=== PATIENT | female | born 1985 | race African-American/Black ===

== ENCOUNTER 2016-08-29 14:51 | Emergency (ER) | payer BC ==
--- NOTE | ~2016-08-29 | CT2 ---
[facility] A Service of [facility] RADIOLOGY TEXT RESULTS PATIENT: HERMAN WELLS LOCATION: [place] : [birth year] UNIT #: [id number] AGE: [address]: Amber Pena MD SEX: F ORDER DR: [id number] [facility] [address] [place], [place] [address] [id number] E MR#: [id number] Acc #: [id number] NAME: HERMAN WELLS : 1985 SEX: F STUDY DATE/TIME: 08/29/2016 19:46 UNIT: [facility] ROOM: STUDY DESCRIPTION: CT Abd and Pelv W Cont Attending Physician: Amber Pena M.D. Ordering Physician: Amber Pena M.D. [facility] REPORT This report is preliminary unless electronic signature is present EXAM CT abdomen and pelvis, 08/29/2016. INDICATION Abdominal pain and vomiting for 2 days. TECHNIQUE Axial images were obtained through the abdomen and pelvis following IV contrast administration. Multiplanar reformats were obtained. No comparison. This CT exam was performed with one or more of the following radiation dose reduction techniques: automatic exposure control, adjustment of mA and/or kV according to patient size, and iterative reconstruction. FINDINGS ABDOMEN: The lung bases are clear. Gallbladder unremarkable. No biliary obstruction. Solid abdominal organs are normal. No free fluid or adenopathy identified. Unopacified GI tract is normal. PELVIS: Urinary bladder is normal. Solid pelvic organs are normal. There is some nonspecific free fluid in the cul-de-sac. The GI tract, including the appendix, is grossly normal. IMPRESSION 1. Trace free fluid in the cul-de-sac. This is nonspecific but of doubtful clinical significance. No other acute findings. 2. Grossly normal unopacified GI tract, including the appendix. Dictated by... Michoacano Whiteside Jr., M.D. [facility] A Service of [facility] RADIOLOGY TEXT RESULTS PATIENT: RUSSELL,HERMAN LOCATION: [place] : [birth year] UNIT #: [id number] AGE: [address]: Amber Pena MD SEX: F ORDER DR: THIS IS AN ELECTRONICALLY VERIFIED REPORT Michoacano Whiteside Jr., M.D. at 08/29/2016 10:24 PM GRETA/madhu TD: 08/29/2016 21:46 JOB #: [id number] MEDICAL IMAGING REPORT Page 1 of 1 COPY
[2016-08-29 15:51] LABS: URINE SOURCE CLEAN CATCH
[2016-08-29 15:56] LABS: URINE APPEARANCE CLEAR; URINE BILIRUBIN NEG (NEG); URINE BLOOD 3+ (NEG); URINE COLOR YELLOW; URINE GLUCOSE NEG (NEG); URINE KETONE NEG (NEG); URINE LEUKOCYTE ESTERASE NEG (NEG); URINE NITRATE NEG (NEG); URINE PH 5.5 (5-8); URINE PROTEIN NEG (NEG); URINE SPECIFIC GRAVITY 1.006 (1.003-1.035); URINE UROBILINOGEN 0.2 MG/DL (NEG)
[2016-08-29 15:57] LABS: URINE BACTERIA AUWI NEG (NEGATIVE); URINE SQUAMOUS EPITHELIAL CELL NONE SEEN /[HPF]; UWBCS1 AUWI 0-2 (0-5)
[2016-08-29 15:58] LABS: BASOPHIL% 0.5 % (0-2.5); EOSINOPHIL# 0.2 X10e3 (0-0.7); EOSINOPHIL% 4.5 % (0.0-7.0); HEMATOCRIT 38.5 % (35.0-45.0); HEMOGLOBIN 12.5 gm/dL (12.0-16.0); LYMPHOCYTE# 1.7 X10e3 (1.0-3.5); LYMPHOCYTE% 33.7 % (17.0-45.0); MEAN CELL VOLUME 92.8 FL (83-96); MEAN CORPUSCULAR HEMOGLOBIN 30.2 PG (28-34); MEAN CORPUSCULAR HGB CONC 32.6 g/dL (30-36); MEAN PLATELET VOLUME 9.6 FL (6.5-11.5); MONOCYTE# 0.4 X10e3 (0-1.0); MONOCYTE% 8.8 % (3.0-12.0); NEUTROPHIL# 2.6 X10e3 (1.5-7.1); NEUTROPHIL% 52.5 % (40-75); PLATELET COUNT 175 X10e3 (140-420); RED BLOOD COUNT 4.14 X10e (3.90-5.30); RED CELL DISTRIBUTION WIDTH 13.1 % (11.0-15.5)
[2016-08-29 16:01] LABS: DIFF IND NO
[2016-08-29 16:02] LABS: CULTURE INDICATED? NO
[2016-08-29 16:17] LABS: ALBUMIN SERUM 4.6 g/dL (3.5-5.0); BILIRUBIN, DIRECT 0.1 mg/dL (0.0-0.2); BILIRUBIN,INDIRECT 0.4 mg/dL (0.0-0.9); BILIRUBIN,TOTAL 0.5 mg/dL (0.2-2.0); BUN/CREATININE RATIO 12.85; CALCIUM SERUM 9.1 mg/dL (8.4-10.2); CREATININE SERUM 0.7 mg/dL (0.6-1.4); GLOM FILT RATE Estimated 136.7 mL/min (>60); POTASSIUM 3.5 mmol/L (3.5-5.1); PROTEIN TOTAL SERUM 8.4 g/dL (6.0-8.3)
== END 2016-08-29 20:36 | disposition home or self-care (01) ==
LOC: CED 14:51
PROVIDERS: Emergency Medicine
DX: R10.32 Left lower quadrant pain (principal); Z88.8 Allergy status to other drugs, medicaments and biological substances
CPT/HCPCS: 36415; 74177; 80048; 80076; 81003; 84703; 85025; 96360; 99284; J1885; Q9967